=== PATIENT | male | born 1995 | race Caucasian/White ===

== ENCOUNTER 2016-09-14 12:57 | Emergency (ER) | payer SELFPAY ==
[2016-09-14] MEDS ORDERED: Sodium Chloride 0.9% 1,000 ML IV STA (13:32)
--- NOTE | 2016-09-14 13:35 | ED PDOC ---
Arrival/HPI - General Chief Complaint: Pain, Chronic Time Seen by Provider: 09/14/16 13:11 Historian: Patient - History of Present Illness Narrative History of Present Illness (Text): 09/14/16 13:20 Sean Siddiqui is a 20 year old male who presents to the emergency department complaining of cough for one week and sharp, diffuse neck pain and sore throat for 3 days. Patient states that the coughs caused the neck pain and sore throat with associated painful swallowing and post tussive headaches. Patient notes that he has been taking antibiotics and an inhaler for his coughs to some relief. Patient denies any other complaints at this time. PMD: Dr. Grimm Time/Duration: 1 week (coughs), < week (neck pain and sore throat) Symptom Onset: Gradual Symptom Course: Worsening Severity Level: Mild Context: Home Past Medical History - Provider Review Nursing Documentation Reviewed: Yes - Cardiac Hx Cardiac Disorders: No - Pulmonary Hx Asthma: Yes (childhood) - Neurological Hx Neurological Disorder: No - HEENT Hx HEENT Disorder: No - Renal Hx Renal Disorder: No - Endocrine/Metabolic Hx Endocrine Disorders: No - Hematological/Oncological Hx Blood Disorders: No - Integumentary Hx Dermatological Disorder: No - Musculoskeletal/Rheumatological Hx Musculoskeletal Disorders: No - Gastrointestinal Hx Gastrointestinal Disorders: No - Genitourinary/Gynecological Hx Genitourinary Disorders: No - Psychiatric Hx Psychophysiologic Disorder: No Hx Substance Use: No Family/Social History - Physician Review Nursing Documentation Reviewed: Yes Family/Social History: No Known Family HX Smoking Status: Never Smoked Hx Alcohol Use: No Hx Substance Use: No Allergies/Home Meds Allergies/Adverse Reactions: Allergies No Known Allergies Allergy (Verified 09/14/16 13:08) Review of Systems - Physician Review All systems were reviewed & negative as marked: Yes - Review of Systems Constitutional: absent: Fevers, Night Sweats Eyes: absent: Vision Changes ENT: Sore Throat. absent: Hearing Changes Respiratory: Cough Cardiovascular: absent: Chest Pain Gastrointestinal: absent: Abdominal Pain Genitourinary Male: absent: Dysuria Musculoskeletal: Neck Pain. absent: Arthralgias Skin: absent: Rash Neurological: Headache Endocrine: absent: Diaphoresis Hemo/Lymphatic: absent: Adenopathy Psychiatric: absent: Anxiety Physical Exam Vital Signs Reviewed: Yes Vital Signs Temp Pulse Resp BP Pulse Ox 09/14/16 16:02 96 H 18 131/68 99 09/14/16 15:07 99.2 F 102 H 17 133/72 99 09/14/16 13:13 107 H 18 126/76 98 09/14/16 13:01 99.4 F 107 H 18 126/76 96 Temperature: Afebrile Blood Pressure: Normal Pulse: Tachycardic Respiratory Rate: Normal Appearance: Positive for: Well-Appearing, Non-Toxic, Comfortable Pain Distress: None Mental Status: Positive for: Alert and Oriented X 3 - Systems Exam Head: Present: Atraumatic, Normocephalic Pupils: Present: PERRL Conjunctiva: Present: Normal Ears: Present: Normal, NORMAL TM. No: Erythema Mouth: Present: Moist Mucous Membranes Pharnyx: Present: ERYTHEMA, EXUDATE (Bilateral tonsiular exudates with errythema ). No: Peritonsilar Swelling, Uvular Deviation, Muffled/Hoarse Voice Neck: Present: Normal Range of Motion, Lymphadenopathy (mild posterior adenopathy) Respiratory/Chest: Present: Clear to Auscultation, Good Air Exchange. No: Respiratory Distress, Accessory Muscle Use Cardiovascular: Present: Regular Rate and Rhythm, Normal S1, S2. No: Murmurs Abdomen: Present: Normal Bowel Sounds. No: Tenderness, Distention, Peritoneal Signs Upper Extremity: Present: Normal Inspection. No: Cyanosis, Edema Lower Extremity: Present: Normal Inspection. No: Edema Neurological: Present: GCS=15, CN II-XII Intact, Speech Normal Skin: Present: Warm, Dry, Normal Color. No: Rashes Psychiatric: Present: Alert, Oriented x 3, Normal Insight, Normal Concentration Medical Decision Making ED Course and Treatment: 09/14/16 13:20 Impression: 20 year old male complaining of one week and sharp, diffuse neck pain and sore throat for 3 days. Differential Diagnosis included but are not limited to: Strep Throat vs. viral Plan: -- Neck CT w/o contrast -- Chest X-ray -- Labs -- Toradol and IV fluids -- Reassess and disposition Progress Notes: 09/14/16 16:48 Given neck pain, CT neck done to r/o abscess. 09/14/16 16:49 CT neck: Accession No. : [id number] Patient Name / ID : ISAAC GOLDBERG / [id number] Exam Date : 09/14/2016 15:11:25 ( Approved ) Study Comment : Sex / Age : M / [id number] Creator : Raul Nuñez MD Dictator : Raul Nuñez MD [employer] Psychologist : Belt Machine Operator : Raul Nuñez MD Approver2 : Report Date : 09/14/2016 15:40:00 My Comment : PROCEDURE: CT NECK WITH CONTRAST HISTORY: posterior neck pain, throat infection - r/o absces COMPARISON: None TECHNIQUE: CT of the neck with intravenous contrast. Coronal and sagittal reformats generated. Intravenous contrast dose: 100 cc of Omni 350 Radiation dose: DLP 373 mGy-cm This CT exam was performed using one or more of the following dose reduction techniques: Automated exposure control, adjustment of the mA and/or kV according to patient size, and/or use of iterative reconstruction technique. FINDINGS: NASOPHARYNX: There is mild enlargement of the adenoids. SUPRAHYOID NECK: Unremarkable oropharynx, oral cavity, parapharyngeal space and retropharyngeal space. The tonsils are unremarkable. INFRAHYOID NECK: Unremarkable larynx, hypopharynx, and supraglottic space. Vocal cords intact. MASS: None. GLANDS: Parotid and submandibular glands unremarkable. Normal size thyroid gland, without nodule. LYMPH NODES: Normal. No lymphadenopathy. CERVICAL SPINE: No fracture or focal lesion. VASCULAR STRUCTURES: Unremarkable. OTHER FINDINGS: None. IMPRESSION: Unremarkable contrast enhanced CT of the neck. 09/14/16 16:49 Patient with unremarkable neck CT. CBC with lymphocytosis with noted atypical lymphocytes. Patient with possible EBV/mono. He has a pmd and do the workup outpatient. Called pharmacy that patient uses, and he is on Augmentin, so will have him continue the augmentin. Patient feels better with toradol. Will d/c on nsaids or tylenol. Ok for d/c. - Lab Interpretations Lab Results: 09/14/16 14:07 09/14/16 14:07 Lab Results 09/14/16 14:07: Sodium 138, Potassium 4.1, Chloride 102, Carbon Dioxide 25, Anion Gap 15, BUN 5 L, Creatinine 0.8, Est GFR ( Amer) > 60, Est GFR (Non -Af Amer) > 60, Random Glucose 95, Calcium 9.0, Total Bilirubin 1.8 H, AST 60 H , ALT 51, Alkaline Phosphatase 78, Total Protein 7.6, Albumin 4.1, Globulin 3.5 , Albumin/Globulin Ratio 1.2 09/14/16 14:07: Grp A Beta Strep Ag Negative 09/14/16 14:07: WBC 11.0, RBC 4.40, Hgb 13.7 L, Hct 39.9 L, MCV 90.7, MCH 31.1, MCHC 34.3, RDW 12.8, Plt Count 127, MPV 12.2 H, Neutrophils % (Manual) 11 L, Band Neutrophils % 1, Lymphocytes % (Manual) 83 H, Atypical Lymphs % 1 H, Monocytes % (Manual) 2, Blast Cells 2, Platelet Evaluation Normal I have reviewed the lab results: Yes - RAD Interpretation Radiology Orders: 09/14/16 13:32 NECK SOFT TISSUE W/CONTRAST [CT] Stat CHEST TWO VIEWS (PA/LAT) [RAD] Stat - Medication Orders Current Medication Orders: Discontinued Medications Sodium Chloride (Sodium Chloride 0.9%) 1,000 mls @ 999 mls/hr IV .Q1H1M STA Stop: 09/14/16 14:32 Last Admin: 09/14/16 14:05 Dose: 999 mls/hr Iohexol (Omnipaque 350 100 Ml) Confirm Administered Dose 350 mg .ROUTE .STK-MED ONE Stop: 09/14/16 14:36 Ketorolac Tromethamine (Toradol) 30 mg IVP STAT STA Stop: 09/14/16 13:34 Last Admin: 09/14/16 14:06 Dose: 30 mg - Scribe Statement The provider has reviewed the documentation as recorded by the Steveibkhloe Hicks Provider Scribe Attestation: All medical record entries made by the Scribe were at my direction and personally dictated by me. I have reviewed the chart and agree that the record accurately reflects my personal performance of the history, physical exam, medical decision making, and the department course for this patient. I have also personally directed, reviewed, and agree with the discharge instructions and disposition. Disposition/Present on Arrival - Present on Arrival Any Indicators Present on Arrival: No History of DVT/PE: No History of Uncontrolled Diabetes: No Urinary Catheter: No History of Decub. Ulcer: No History Surgical Site Infection Following: None - Disposition Have Diagnosis and Disposition been Completed?: Yes Diagnosis: Pharyngitis, Lymphocytosis Disposition: HOME/ ROUTINE Disposition Time: 16:55 Patient Plan: Discharge Condition: GOOD Discharge Instructions (ExitCare): Pharyngitis (ED) Additional Instructions: Continue the antibiotic prescribed by Dr. Grimm. Use ibuprofen (or tylenol) for pain as needed. Have Dr. Grimm work you up for possible mononucleosis. Return to the emergency department if any new concerning symptoms. Prescriptions: Ibuprofen [Motrin Tab] 1 tab PO Q8H PRN #15 tab PRN Reason: Pain, Moderate (4-7) Referrals: Awa Grimm MD [Staff Provider] - Follow up with primary Forms: [employer] (Ugandan)
[2016-09-14 14:11] LABS: HEMOGLOBIN 13.7 gm/dL (14.0-18.0); MEAN CELL VOLUME 90.7 fL (80.0-105.0); MEAN CORPUSCULAR HEMOGLOBIN 31.1 pg (25.0-35.0); MEAN CORPUSCULAR HGB CONC 34.3 g/dl (31.0-37.0); MEAN PLATELET VOLUME 12.2 fl (7.0-11.0); PLATELET COUNT 127 10^3/uL (120.0-450.0); RED CELL DISTRIBUTION WIDTH 12.8 % (11.5-14.5)
[2016-09-14 14:29] LABS: ALB/GLOB RATIO 1.2 (1.1-1.8); ALBUMIN 4.1 g/dL (3.0-4.8); ALT/SGPT 51 U/L (7-56); AST/SGOT 60 U/L (15-59); ATYPICAL LYMPHOCYTE 1 % (0.0-0.0); BAND 1 % (0-2); BLOOD UREA NITROGEN 5 mg/dL (7-21); GFR AFRICAN-AMERICAN > 60; GFR NON-AFRICAN AMERICAN > 60; LYMPHOCYTE 83 % (22.0-35.0); MONOCYTE 2 % (1.0-6.0); NEUTROPHIL 11 % (50.0-70.0)
[2016-09-14 14:30] LABS: PLATELET ESTIMATE NORMAL (NORMAL)
[2016-09-14] MEDS ORDERED: Iohexol 350 MG/100 ML VIAL ONE (14:35)
[2016-09-14 15:08] VITALS: TEMP 99.2; O2SAT 99
--- NOTE | 2016-09-14 15:41 | CT ---
PROCEDURE: CT NECK WITH CONTRAST HISTORY: posterior neck pain, throat infection - r/o absces COMPARISON: None TECHNIQUE: CT of the neck with intravenous contrast. Coronal and sagittal reformats generated. Intravenous contrast dose: 100 cc of Omni 350 Radiation dose: DLP 373 mGy-cm This CT exam was performed using one or more of the following dose reduction techniques: Automated exposure control, adjustment of the mA and/or kV according to patient size, and/or use of iterative reconstruction technique. FINDINGS: NASOPHARYNX: There is mild enlargement of the adenoids. SUPRAHYOID NECK: Unremarkable oropharynx, oral cavity, parapharyngeal space and retropharyngeal space. The tonsils are unremarkable. INFRAHYOID NECK: Unremarkable larynx, hypopharynx, and supraglottic space. Vocal cords intact. MASS: None. GLANDS: Parotid and submandibular glands unremarkable. Normal size thyroid gland, without nodule. LYMPH NODES: Normal. No lymphadenopathy. CERVICAL SPINE: No fracture or focal lesion. VASCULAR STRUCTURES: Unremarkable. OTHER FINDINGS: None. IMPRESSION: Unremarkable contrast enhanced CT of the neck.
--- NOTE | 2016-09-14 15:51 | RAD ---
HISTORY: cough COMPARISON: No prior. TECHNIQUE: Chest PA and lateral FINDINGS: LUNGS: No active pulmonary disease. PLEURA: No significant pleural effusion identified. No pneumothorax apparent. CARDIOVASCULAR: Normal. OSSEOUS STRUCTURES: No significant abnormalities. VISUALIZED UPPER ABDOMEN: Normal. OTHER FINDINGS: None. IMPRESSION: No active disease.
[2016-09-14 16:03] VITALS: RESP 18
[2016-09-14 17:09] VITALS: BP 133/72; PULSE 91
== END 2016-09-14 17:10 | disposition home or self-care (01) ==
LOC: ED 12:57
DX: J02.9 Acute pharyngitis, unspecified (principal); D72.820 Lymphocytosis (symptomatic)
CPT/HCPCS: 70491; 71020; 80053; 85025; 87070; 87430; 96361; 96374; 99285; J1885; J7040; Q9967

== ENCOUNTER 2017-01-01 13:12 | Emergency (ER) | payer OTHER ==
[2017-01-01 13:22] VITALS: BP 125/74; PULSE 105; RESP 16; TEMP 98.7; O2SAT 97
--- NOTE | 2017-01-01 14:58 | ED PDOC ---
Arrival/HPI - General Chief Complaint: ENT Problem Time Seen by Provider: 01/01/17 14:25 Historian: Patient - History of Present Illness Narrative History of Present Illness (Text): 01/01/17 14:55 21-year-old male presents today with a four-day history of sore throat. Patient states 4 days ago the pain started on the left side of the throat and now has switched to the right. Patient complaining of pain with swallowing. States he took Tylenol for pain without improvement. Complaining of subjective fevers at home. Patient states she had an episode of vomiting yesterday. He denies abdominal pain. States he had fevers last night. Denies dizziness or weakness. Complaining of nasal congestion and postnasal drip. Patient states he had a history of mono in August. No other complaints. no sick contacts. Time/Duration: Other (4 days) Past Medical History - Provider Review Nursing Documentation Reviewed: Yes - Travel History Have you recently traveled outside [place] w/in the past 3 mons?: No - Tetanus Immunization Tetanus Immunization: Unknown - Cardiac Hx Cardiac Disorders: No - Pulmonary Hx Asthma: Yes (childhood) - Neurological Hx Neurological Disorder: No - HEENT Hx HEENT Disorder: Yes Other/Comment: MONONUCLEOSIS - Renal Hx Renal Disorder: No - Endocrine/Metabolic Hx Endocrine Disorders: No - Hematological/Oncological Hx Blood Disorders: No - Integumentary Hx Dermatological Disorder: No - Musculoskeletal/Rheumatological Hx Musculoskeletal Disorders: No - Gastrointestinal Hx Gastrointestinal Disorders: No - Genitourinary/Gynecological Hx Genitourinary Disorders: No - Psychiatric Hx Psychophysiologic Disorder: No Hx Substance Use: No Family/Social History - Physician Review Nursing Documentation Reviewed: Yes Family/Social History: Unknown Family HX Smoking Status: Never Smoked Hx Alcohol Use: Yes Frequency of alcohol use: Socially Hx Substance Use: No Allergies/Home Meds Allergies/Adverse Reactions: Allergies No Known Allergies Allergy (Verified 01/01/17 13:16) Review of Systems - Review of Systems Constitutional: Fevers ENT: Sore Throat, Sinus Congestion Respiratory: absent: SOB, Cough Cardiovascular: absent: Chest Pain, Palpitations Gastrointestinal: Vomiting. absent: Abdominal Pain, Nausea Genitourinary Male: absent: Dysuria Musculoskeletal: absent: Arthralgias Skin: absent: Rash, Pruritis Neurological: absent: Headache Physical Exam Vital Signs Reviewed: Yes Vital Signs Temp Pulse Resp BP Pulse Ox 01/01/17 13:16 98.7 F 105 H 16 125/74 97 Temperature: Afebrile Blood Pressure: Normal Pulse: Tachycardic Respiratory Rate: Normal Appearance: Positive for: Well-Appearing, Non-Toxic, Comfortable Pain Distress: None Mental Status: Positive for: Alert and Oriented X 3 - Systems Exam Head: Present: Atraumatic Ears: Present: Normal Mouth: Present: Moist Mucous Membranes Pharnyx: Present: ERYTHEMA, Other (+ post nasal drip noted). No: EXUDATE, TONSILS ENLARGED, Peritonsilar Swelling, Uvular Deviation, Muffled/Hoarse Voice , Strider, Soft Palate/Uvular Edema Nose (External): Present: Atraumatic Neck: Present: Normal Range of Motion, Trachea Midline. No: Lymphadenopathy Respiratory/Chest: Present: Clear to Auscultation, Good Air Exchange. No: Respiratory Distress, Accessory Muscle Use Cardiovascular: Present: Regular Rate and Rhythm, Normal S1, S2. No: Murmurs Neurological: Present: GCS=15, Speech Normal Skin: Present: Warm, Dry Psychiatric: Present: Alert, Oriented x 3 Medical Decision Making ED Course and Treatment: 01/01/17 14:57 Patient is nontoxic well appearing in no distress. Vital signs are stable Tolerating p.o. fluids and solids Toradol 30 mg IM Decadron 10 mg IM rapid strep: negative Patient reassessment: Patient feeling better after medications, vital signs stable. Moist mucous membranes. speaking in full sentences; no distress. amoxicillin given po. I advised follow up with primary care physician and ENT specialist within the next 2 days, advised to increase fluids take medications as prescribed and return if symptoms worsen persist or if new symptoms develop IMPRESSION; pharyngitis Motrin every 6 hours as needed for pain/fever reduction Increase fluids Amoxicillin 3 times daily x10 days Flonase; 2 sprays each nostril once daily. Follow up primary care physician within the next 2 days Follow up with the ENT specialist within the next 2 days. Saltwater gargles, throat lozenges Return if symptoms worsen persist or if the symptoms develop 01/01/17 15:45 - Lab Interpretations Lab Results: Lab Results 01/01/17 15:05: Grp A Beta Strep Ag Negative - Medication Orders Current Medication Orders: Discontinued Medications Amoxicillin (Amoxil 500 Mg Cap) 500 mg PO STAT STA PRN Reason: Protocol Stop: 01/01/17 15:43 Dexamethasone (Decadron Inj) 10 mg IM STAT STA Stop: 01/01/17 14:27 Last Admin: 01/01/17 15:13 Dose: 10 mg IM Administration Charges Document 01/01/17 15:13 OCS (Rec: 01/01/17 15:13 [id number]) Injection Site MAR Injection Site Left Deltoid Charges for Administration # of IM Administrations 1 Ketorolac Tromethamine (Toradol) 30 mg IM STAT STA Stop: 01/01/17 14:29 Last Admin: 01/01/17 15:13 Dose: 30 mg MAR Pain Assessment Document 01/01/17 15:13 OCS (Rec: 01/01/17 15:14 [id number]) Pain Reassessment Is this a pain reassessment? Yes Sleep Is patient sleeping during reassessment? No Presence of Pain Presence of Pain Yes Pain Scale Used Pain Scale Used Numeric Location Pain Location Body Site Throat Description Description Constant IM Administration Charges Document 01/01/17 15:13 OCS (Rec: 01/01/17 15:14 [id number]) Injection Site MAR Injection Site Right Deltoid Charges for Administration # of IM Administrations 1 Disposition/Present on Arrival - Present on Arrival Any Indicators Present on Arrival: No History of DVT/PE: No History of Uncontrolled Diabetes: No Urinary Catheter: No History of Decub. Ulcer: No History Surgical Site Infection Following: None - Disposition Have Diagnosis and Disposition been Completed?: Yes Diagnosis: Pharyngitis Disposition: HOME/ ROUTINE Disposition Time: 15:46 Patient Plan: Discharge Condition: GOOD Discharge Instructions (ExitCare): Pharyngitis (ED) Additional Instructions: Motrin every 6 hours as needed for pain/fever reduction Increase fluids Amoxicillin 3 times daily x10 days Flonase; 2 sprays each nostril once daily. Follow up primary care physician within the next 2 days Follow up with the ENT specialist within the next 2 days. Saltwater gargles, throat lozenges Return if symptoms worsen persist or if the symptoms develop Prescriptions: Amoxicillin 500 mg PO TID #30 tab Fluticasone Nasal [Flonase] 2 spr NS DAILY #1 spr Ibuprofen [Motrin] 600 mg PO Q6H PRN #20 tab PRN Reason: pain/fever reduction Referrals: Awa Grimm MD [Primary Care Provider] - Follow up with primary Gus Garcia DO [Staff Provider] - Follow up with primary Forms: [employer] (Pashto), WORK NOTE
== END 2017-01-01 21:13 | disposition home or self-care (01) ==
LOC: ED 13:12
DX: J02.9 Acute pharyngitis, unspecified (principal)
CPT/HCPCS: 87070; 87430; 96372; 99282; J1100; J1885

== ENCOUNTER 2017-09-18 14:51 | Emergency (ER) | payer OTHER ==
[2017-09-18 14:53] VITALS: BMI 25.0
[2017-09-18 14:56] VITALS: RESP 18
[2017-09-18] MEDS ORDERED: TDAP Vaccine 0.5 mL Syr IM ONE (15:32)
--- NOTE | 2017-09-18 15:35 | ED PDOC ---
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 Denies any active bleeding, numbness, decrease in ROM, any other injury. Past Medical History - Infectious Disease Hx of Infectious Diseases: None - Tetanus Immunization Tetanus Immunization: Unknown - Cardiac Hx Cardiac Disorders: No - Pulmonary Hx Asthma: Yes (childhood) - Neurological Hx Neurological Disorder: No - HEENT Hx HEENT Disorder: Yes Other/Comment: MONONUCLEOSIS - Renal Hx Renal Disorder: No - Endocrine/Metabolic Hx Endocrine Disorders: No - Hematological/Oncological Hx Blood Disorders: No - Integumentary Hx Dermatological Disorder: No - Musculoskeletal/Rheumatological Hx Musculoskeletal Disorders: No - Gastrointestinal Hx Gastrointestinal Disorders: No - Genitourinary/Gynecological Hx Genitourinary Disorders: No - Psychiatric Hx Psychophysiologic Disorder: No Hx Substance Use: No Family/Social History Family/Social History: No Known Family HX Smoking Status: Never Smoked Hx Alcohol Use: Yes Hx Substance Use: No Allergies/Home Meds Allergies/Adverse Reactions: Allergies No Known Allergies Allergy (Verified 01/01/17 13:16) Home Medications: Home Meds Medication Instructions Recorded Confirmed No Known Home Med 09/18/17 09/18/17 Review of Systems - Review of Systems Constitutional: absent: Fatigue, Weight Change, Fevers Musculoskeletal: absent: Arthralgias, Back Pain, Neck Pain Skin: Laceration. absent: Rash, Pruritis, Skin Lesions Physical Exam Vital Signs Temp Pulse Resp BP Pulse Ox 09/18/17 14:55 98.9 F 105 H 18 119/77 100 Temperature: Afebrile Blood Pressure: Normal Pulse: Tachycardic Respiratory Rate: Normal Appearance: Positive for: Well-Appearing, Non-Toxic, Comfortable Pain Distress: None Mental Status: Positive for: Alert and Oriented X 3 - Systems Exam Upper Extremity: Present: Normal ROM, NORMAL PULSES, Neurovascularly Intact, Capillary Refill < 2s, Norm 2-Pt Discrimination. No: Edema, Tenderness, Swelling, Erythema, Temperature Abnormalties Neurological: Present: GCS=15, CN II-XII Intact, Speech Normal, Motor Func Grossly Intact, Normal Sensory Function Skin: Present: Warm, Dry, Normal Color, Laceration (+1.5 cm laceration to the dorsal aspect of the R hand). No: Rashes Psychiatric: Present: Alert, Oriented x 3, Normal Insight, Normal Concentration Medical Decision Making ED Course and Treatment: 09/18/17 15:32 Plan : - Tdap - laceration repair with dermabond Patient instructed to follow-up with workman's comp or pmd in 1-2 days without fail. Advised on proper wound care. Return to the emergency room at any time for any new or worsening symptoms. Patient states he fully agrees with and understands discharge instructions. States that he agrees with the plan and disposition. Verbalized and repeated discharge instructions and plan. I have given the patient opportunity to ask any additional questions. - Medication Orders Current Medication Orders: Discontinued Medications Tetanus/Reduced Diphtheria/Acell Pertussis (Boostrix Vaccine Inj) 0.5 ml IM .ONCE ONE Stop: 09/18/17 15:33 Procedure: Wound Repair - Time Performed Time Performed: 15:20 - Time Out Time Out: Side verified, Site verified, Patient ID confirmed - Consent Obtained Consent obtained: Verbal - Performed by Performed by: Mid-level Provider - Indications Indication(s):: Laceration - Location Location:: Right, Hand Shape:: Linear Dimensions Length cm: 1.5 Depth:: Epidermis - Debris Debris:: None - Irrigated Irrigated with ml of normal saline: 100 cc - Complexity Complexity:: Simple (one layer) - Wound repair method Francy:: Tissue glue - Patient tolerated procedure Patient Tolerated Procedure:: Well - 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 Disposition/Present on Arrival - Present on Arrival Any Indicators Present on Arrival: No History of DVT/PE: No History of Uncontrolled Diabetes: No Urinary Catheter: No History of Decub. Ulcer: No History Surgical Site Infection Following: None - Disposition Have Diagnosis and Disposition been Completed?: Yes Diagnosis: Hand laceration Disposition: HOME/ ROUTINE Disposition Time: 15:30 Patient Plan: Discharge Patient Problems: Current Active Problems Problem Status Onset Hand laceration Acute Condition: STABLE Discharge Instructions (ExitCare): Laceration Repair With Glue (DC) Additional Instructions: Thank you for letting us take care of you today. You were treated for hand laceration. The emergency medical care you received today was directed at your acute symptoms. Keep wound clean and dry, avoid getting wet with water. Return to the Emergency Department if your symptoms worsen, do not improve, or if you have any other problems. Please contact your doctor or workman's comp in 2 days for re-evaluation and follow up. Bring any paperwork you were given at discharge with you along with any medications you are taking to your follow up visit. Our treatment cannot replace ongoing medical care by a primary care provider (PCP) outside of the emergency department. Thank you for allowing the [facility] team to be part of your care today. Referrals: Awa Grimm MD [Primary Care Provider] - Follow up with primary Forms: [employer] (Bangladeshi)
[2017-09-18 16:19] VITALS: BP 120/72; PULSE 92; TEMP 98.8; O2SAT 99
== END 2017-09-18 16:01 | disposition home or self-care (01) ==
LOC: ED 14:51
DX: S61.411A Laceration without foreign body of right hand, initial encounter (principal); W45.8XXA Other foreign body or object entering through skin, initial encounter; Y92.89 Other specified places as the place of occurrence of the external cause; Y99.0 Civilian activity done for income or pay; Z23 Encounter for immunization